=== PATIENT | female | born 1965 | race Native Hawaiian/Other Pacific Islander ===

== ENCOUNTER 2017-05-07 10:37 | Outpatient (CLI) | payer OTHER | END 2017-05-07 11:40 | disposition home or self-care (01) | LOC: MAMMO 10:37 | DX: Z12.31 Encounter for screening mammogram for malignant neoplasm of breast (principal) ==

== ENCOUNTER 2018-09-13 08:51 | Outpatient (CLI) | payer OTHER | END 2018-09-13 19:47 | disposition home or self-care (01) | LOC: MAMMO 08:51 | DX: Z12.31 Encounter for screening mammogram for malignant neoplasm of breast (principal) ==

== ENCOUNTER 2019-10-03 08:12 | Outpatient (CLI) | payer OTHER | END 2019-10-03 21:27 | disposition home or self-care (01) | LOC: MAMMO 08:12 | DX: Z12.31 Encounter for screening mammogram for malignant neoplasm of breast (principal) ==